=== PATIENT | male | born 1985 | race Caucasian/White ===

== ENCOUNTER 2025-03-24 10:58 | Emergency (ER) | payer OTHER ==
[~2025-03-24] VITALS: Ht 185.4 cm; Wt 74.0 kg
[2025-03-24 11:09] VITALS: O2SAT 99
[2025-03-24] MEDS ORDERED: METO-539 MT (11:33)
[2025-03-24 11:36] VITALS: BP 109/70; PULSE 80; RESP 15; TEMP 36.7; O2SAT 99
== END 2025-03-24 11:39 | disposition home or self-care (01) ==
LOC: ER 10:58
DX: Q82.8 Other specified congenital malformations of skin (principal); I45.6 Pre-excitation syndrome; Z76.0 Encounter for issue of repeat prescription; Z91.148 Patient's other noncompliance with medication regimen for other reason
CPT/HCPCS: 99282